=== PATIENT | male | born 1935 | race Caucasian/White ===

== ENCOUNTER 2018-09-03 07:45 | Emergency (ER) | payer MEDICARE, BC ==
--- NOTE | 2018-09-03 08:46 | EDM.PDOC ---
ED HPI GENERAL MEDICAL PROBLEM - General Stated Complaint: POSSIBLE STROKE? Time Seen by Provider: 09/03/18 08:10 Source of Information: Reports: Patient, Family (spouse) History Limitations: Reports: No Limitations - History of Present Illness INITIAL COMMENTS - FREE TEXT/NARRATIVE: According to patient he claims he felt numbness all over his body last Monday( 3 days ago) cannot describe how long it last but rsolved. On staruday he had short episodes of slurred speech and had wobbly gait and went to sleep and was fine when he woke up.He has been weak on and off since then.Feels dizzy. He woke up today morning and tired to get out of bed and felt dizzy. gave him some tea and brought him into emergency room. Pt walked into the emergency room. No nausea or vomiting, no headache, no loss of consciousness. No head injury. According to his , he has been very agitated for the past few days . Gets angry and upset with her some times. Pt has severe dementia and is on Namenda and Aricept. Onset Date: 08/31/18 Duration: Intermittent Severity: Mild Improves with: Reports: None Worsens with: Reports: None Associated Symptoms: Reports: Confusion, Weakness. Denies: Chest Pain, Cough, Diaphoresis, Fever/Chills, Headaches, Nausea/Vomiting, Rash, Seizure, Shortness of Breath, Syncope - Related Data Allergies Allergy/AdvReac Type Severity Reaction Status Date / Time No Known Allergies Allergy Verified 09/03/18 08:10 Home Meds: Home Meds Aspirin [Iam Chewable Aspirin] 81 mg PO DAILY 11/22/12 [History] Cholecalciferol (Vitamin D3) [Vitamin D] 400 unit PO DAILY 11/22/12 [History] Lansoprazole [Prevacid Solutab] 30 mg PO DAILY 11/22/12 [History] Multivitamin [Multi Vitamin Daily] 1 tab PO DAILY 11/22/12 [History] Simvastatin [Zocor] 10 mg PO BEDTIME 11/22/12 [History] Tamsulosin [Flomax] 0.4 mg PO DAILY 11/22/12 [History] Memantine HCl [Namenda] 10 mg PO DAILY 09/03/18 [History] Venlafaxine HCl [Venlafaxine ER] 75 mg PO DAILY 09/03/18 [History] ED ROS GENERAL - Review of Systems Review Of Systems: See Below Constitutional: Denies: Fever, Chills HEENT: Denies: Ear Pain, Rhinitis, Throat Pain Respiratory: Denies: Shortness of Breath, Cough, Sputum Cardiovascular: Denies: Chest Pain, Lightheadedness Endocrine: Denies: Fatigue GI/Abdominal: Denies: Abdominal Pain, Nausea, Vomiting : Denies: Dysuria, Frequency Musculoskeletal: Denies: Joint Pain, Joint Swelling Skin: Denies: Bruising, Pruritis, Rash Neurological: Reports: Confusion, Dizziness, Numbness (on monday( 3 days ago)), Weakness. Denies: Headache, Seizure, Syncope, Tingling, Change in Speech Psychiatric: Reports: Agitation, Confusion. Denies: Anxiety, Cravings, Depression, Hallucinations, Suicidal Ideation ED EXAM, GENERAL - Physical Exam Exam: See Below Exam Limited By: No Limitations General Appearance: Alert, WD/WN, No Apparent Distress Eye Exam: Bilateral Eye: EOMI, PERRL Ears: Normal External Exam, Normal Canal, Hearing Grossly Normal, Normal TMs Ear Exam: Bilateral Ear: Auricle Normal, Canal Normal, TM normal Nose: Normal Inspection, Normal Mucosa, No Blood Throat/Mouth: Normal Inspection, Normal Lips, Normal Teeth, Normal Gums, Normal Oropharynx, Normal Voice, No Airway Compromise Head: Atraumatic Neck: Normal Inspection, Supple, Non-Tender, Full Range of Motion Respiratory/Chest: No Respiratory Distress, Lungs Clear, Normal Breath Sounds, No Accessory Muscle Use, Chest Non-Tender Cardiovascular: Normal Peripheral Pulses, Regular Rate, Rhythm, No Edema, No Gallop, No JVD, No Murmur, No Rub Peripheral Pulses: 2+: Carotid (L), Carotid (R), Radial (L), Radial (R) GI/Abdominal: Normal Bowel Sounds, Soft, Non-Tender, No Organomegaly, No Distention, No Abnormal Bruit, No Mass Extremities: Normal Inspection, Normal Range of Motion, Non-Tender, Normal Capillary Refill, No Pedal Edema Neurological: Alert, Oriented, CN II-XII Intact, Normal Cognition, Normal Gait, Normal Reflexes, No Motor/Sensory Deficits Skin Exam: Warm, Intact Course - Vital Signs Text/Narrative:: Pt's clinical exam is normal. His vitals are stable. Has he has been c/o dizziness, did get orthostatic pressure, which are normal. Pt has episode of numbness on Monday and has been having weakness. Very nonspecific symptoms. His neuro exam today is normal. He has dementia on Namenda and Aricept. He is agitated and angry at times,which might be behavior issues asso with dementia. I do not see any acute clinical signs of stroke on today's exam. Did get Ct head to reassure patient and spouse. 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 Also his CBC and CMP are normal. I did get UA considering his change in behavior, and his UA is negative for infection. Pt and spouse reassured that patient does not have might have had a TIA or ischemic stroke, but it is late to be treated.. But will need to have MRI of the brain done, which is more for confirmation of the stroke. I did contact Dr. Kraus, the neurologist at [facility] and discuss with him. His recommendation was to get out patient MRI of the brain. I did contact patient's primary care provider, JAMILA Benson at [facility] and discuss patient with her. Ms. Duarte has placed an MRI Brain request. I have discussed this with patient's spouse. Advised her to call [facility] Radiology department to schedule time for MRI. Pt and spouse understand and agree with plan. Last Recorded V/S: Last Vital Signs Temp 98.8 F 09/03/18 10:03 Pulse 76 09/03/18 10:03 Resp 18 09/03/18 10:03 BP 131/66 09/03/18 10:03 Pulse Ox 98 09/03/18 10:03 - Orders/Labs/Meds Labs: Laboratory Tests 09/03/18 09/03/18 09/03/18 Range/Units 08:39 08:40 08:40 WBC 11.9 H D (4.0-11.0) K/uL RBC 4.38 L (4.50-6.50) M/uL Hgb 14.0 (13.0-18.0) g/dL Hct 42.5 (40.0-54.0) % MCV 97 H (76-96) fL MCH 32.0 (27.0-32.0) pg MCHC 32.9 (31.0-35.0) g/dL RDW 12.2 (11.0-16.0) % Plt Count 226 (150-400) K/uL MPV 9.0 (6.0-10.0) fL Neut % (Auto) 70.8 H (45.0-70.0) % Lymph % (Auto) 17.4 L (20.0-40.0) % [place] % (Auto) 11.7 H (3.0-10.0) % Eos % (Auto) 0.0 L (1.0-5.0) % Baso % (Auto) 0.1 (0.0-0.5) % Neut # (Auto) 8.45 H (2.00-7.50) K/uL Lymph # (Auto) 2.08 (1.50-4.00) K/uL [place] # (Auto) 1.40 H (0.20-0.80) K/uL Eos # (Auto) 0.00 L (0.04-0.40) K/uL Baso # (Auto) 0.01 L (0.02-0.10) K/uL PT (9.0-11.5) sec INR (1.0-3.5) APTT (24.4-33.2) SECONDS Sodium 137 (136-145) mmol/L Potassium 4.1 (3.5-5.1) mmol/L Chloride 100 (98-107) mmol/L Carbon Dioxide 29.5 (21.0-32.0) mmol/L Anion Gap 11.6 (5.0-15.0) mmol/L BUN 10 (8-26) mg/dL Creatinine 0.96 (0.70-1.30) mg/dL Est Cr Clr Drug Dosing TNP Estimated GFR (MDRD) > 60 (>60) MLS/MIN BUN/Creatinine Ratio 10.4 (6-25) Glucose 109 H D (74-100) mg/dL Calcium 8.4 L (8.5-10.1) mg/dL Total Bilirubin 0.8 D (0.0-1.0) mg/dL AST 19 (15-37) U/L ALT 17 (12-78) U/L Alkaline Phosphatase 80 (46-116) U/L Total Protein 7.1 (6.4-8.2) g/dL Albumin 3.0 L (3.4-5.0) g/dL Globulin 4.1 (2.2-4.2) g/dL Albumin/Globulin Ratio 0.7 L (0.8-2.0) Urine Color Yellow Urine Appearance Clear (CLEAR) Urine pH 6.0 (5.0-8.0) Ur Specific [place] 1.015 (1.003-1.030) Urine Protein Negative (NEGATIVE) mg/dL Urine Glucose (UA) Negative (NEGATIVE) mg/dL Urine Ketones 15 H (NEGATIVE) mg/dL Urine Occult Blood Trace-lysed H (NEGATIVE) Urine Nitrite Negative (NEGATIVE) Urine Bilirubin Negative (NEGATIVE) Urine Urobilinogen 0.2 (0.2-1.0) E.U./dL Ur Leukocyte Esterase Negative (NEGATIVE) Urine RBC 0-5 H /HPF Urine WBC 0-5 H /HPF Ur Squamous Epith Cells Few /HPF Urine Bacteria Not seen /HPF 09/03/18 Range/Units 08:40 WBC (4.0-11.0) K/uL RBC (4.50-6.50) M/uL Hgb (13.0-18.0) g/dL Hct (40.0-54.0) % MCV (76-96) fL MCH (27.0-32.0) pg MCHC (31.0-35.0) g/dL RDW (11.0-16.0) % Plt Count (150-400) K/uL MPV (6.0-10.0) fL Neut % (Auto) (45.0-70.0) % Lymph % (Auto) (20.0-40.0) % [place] % (Auto) (3.0-10.0) % Eos % (Auto) (1.0-5.0) % Baso % (Auto) (0.0-0.5) % Neut # (Auto) (2.00-7.50) K/uL Lymph # (Auto) (1.50-4.00) K/uL [place] # (Auto) (0.20-0.80) K/uL Eos # (Auto) (0.04-0.40) K/uL Baso # (Auto) (0.02-0.10) K/uL PT 10.4 (9.0-11.5) sec INR 1.1 (1.0-3.5) APTT 25.0 (24.4-33.2) SECONDS Sodium (136-145) mmol/L Potassium (3.5-5.1) mmol/L Chloride (98-107) mmol/L Carbon Dioxide (21.0-32.0) mmol/L Anion Gap (5.0-15.0) mmol/L BUN (8-26) mg/dL Creatinine (0.70-1.30) mg/dL Est Cr Clr Drug Dosing Estimated GFR (MDRD) (>60) MLS/MIN BUN/Creatinine Ratio (6-25) Glucose (74-100) mg/dL Calcium (8.5-10.1) mg/dL Total Bilirubin (0.0-1.0) mg/dL AST (15-37) U/L ALT (12-78) U/L Alkaline Phosphatase (46-116) U/L Total Protein (6.4-8.2) g/dL Albumin (3.4-5.0) g/dL Globulin (2.2-4.2) g/dL Albumin/Globulin Ratio (0.8-2.0) Urine Color Urine Appearance (CLEAR) Urine pH (5.0-8.0) Ur Specific [place] (1.003-1.030) Urine Protein (NEGATIVE) mg/dL Urine Glucose (UA) (NEGATIVE) mg/dL Urine Ketones (NEGATIVE) mg/dL Urine Occult Blood (NEGATIVE) Urine Nitrite (NEGATIVE) Urine Bilirubin (NEGATIVE) Urine Urobilinogen (0.2-1.0) E.U./dL Ur Leukocyte Esterase (NEGATIVE) Urine RBC /HPF Urine WBC /HPF Ur Squamous Epith Cells /HPF Urine Bacteria /HPF Departure - Departure Time of Disposition: 10:30 Disposition: Home, Self-Care 01 Condition: Fair Clinical Impression: TIA (transient ischemic attack) - Discharge Information *PRESCRIPTION DRUG MONITORING PROGRAM REVIEWED*: Not Applicable *COPY OF PRESCRIPTION DRUG MONITORING REPORT IN PATIENT KARMEN: Not Applicable Referrals: PCP,None [Primary Care Provider] - Additional Instructions: Pt's clinical exam is normal. His vitals are stable. Has he has been c/o dizziness, did get orthostatic pressure, which are normal. Pt has episode of numbness on Monday and has been having weakness. Very nonspecific symptoms. His neuro exam today is normal. He has dementia on Namenda and Aricept. He is agitated and angry at times,which might be behavior issues asso with dementia. I do not see any acute clinical signs of stroke on today's exam. Did get Ct head to reassure patient and spouse. 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 Also his CBC and CMP are normal. I did get UA considering his change in behavior, and his UA is negative for infection. Pt and spouse reassured that patient does not have might have had a TIA or ischemic stroke, but it is late to be treated.. But will need to have MRI of the brain done, which is more for confirmation of the stroke. I did contact Dr. Kraus, the neurologist at [facility] and discuss with him. His recommendation was to get out patient MRI of the brain. I did contact patient's primary care provider, JAMILA Benson at [facility] and discuss patient with her. Ms. Duarte has placed an MRI Brain request. I have discussed this with patient's spouse. Advised her to call [facility] Radiology department to schedule time for MRI. Pt and spouse understand and agree with plan. - Problem List & Annotations (1) TIA (transient ischemic attack) SNOMED Code(s): 484614510 Code(s): G45.9 - TRANSIENT CEREBRAL ISCHEMIC ATTACK, UNSPECIFIED Status: Acute Current Visit: Yes - Problem List Review Problem List Initiated/Reviewed/Updated: Yes - Assessment/Plan Assessment:: TIA Plan: Pt's clinical exam is normal. His vitals are stable. Has he has been c/o dizziness, did get orthostatic pressure, which are normal. Pt has episode of numbness on Monday and has been having weakness. Very nonspecific symptoms. His neuro exam today is normal. He has dementia on Namenda and Aricept. He is agitated and angry at times,which might be behavior issues asso with dementia. I do not see any acute clinical signs of stroke on today's exam. Did get Ct head to reassure patient and spouse. 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 Also his CBC and CMP are normal. I did get UA considering his change in behavior, and his UA is negative for infection. Pt and spouse reassured that patient does not have might have had a TIA or ischemic stroke, but it is late to be treated.. But will need to have MRI of the brain done, which is more for confirmation of the stroke. I did contact Dr. Kraus, the neurologist at [facility] and discuss with him. His recommendation was to get out patient MRI of the brain. I did contact patient's primary care provider, JAMILA Benson at [facility] and discuss patient with her. Ms. Duarte has placed an MRI Brain request. I have discussed this with patient's spouse. Advised her to call [facility] Radiology department to schedule time for MRI. Pt and spouse understand and agree with plan.
[2018-09-03 09:44] VITALS: BP 131/66
--- NOTE | 2018-09-03 10:03 | CT ---
DATE OF SERVICE: 09/03/2018 CLINICAL DATA: DIZZINESS Unenhanced brain CT: Multislice acquisition through the brain without IV contrast was performed. No priors. There is diffuse cerebral atrophy. There are periventricular lucencies bilaterally consistent with small vessel ischemic change. No evidence of intracranial hemorrhage. There is a rounded area of decreased attenuation located in the posterior parietal region on the left superior to the left lateral ventricle. This may just be focal small vessel ischemic change. I cannot, however exclude, a focal infarct or low density mass. No other abnormalities. No osseous abnormalities. Impression: Focal abnormality in the left posterior parietal region as discussed above. A follow up CT with contrast enhancement or an MRI scan without and with IV contrast enhancement should be considered. MTDD
[2018-09-03] MEDS ORDERED: Acetaminophen 325 MG Tab PO ONE (10:24)
[2018-09-03] MEDS ORDERED: Acetaminophen 325 MG Tab ONE (10:30)
== END 2018-09-03 10:27 | disposition home or self-care (01) ==
LOC: LB.ED 07:45
DX: G45.9 Transient cerebral ischemic attack, unspecified (principal)
CPT/HCPCS: 36415; 70450; 80053; 81001; 85025; 85610; 85730; A9270-GY

== ENCOUNTER 2018-09-03 21:24 | Emergency (ER) | payer MEDICARE, BC ==
--- NOTE | 2018-09-03 21:42 | EDM.PDOC ---
ED HPI GENERAL MEDICAL PROBLEM - General Chief Complaint: Neurological Problem Stated Complaint: confusion Time Seen by Provider: 09/03/18 21:25 Source of Information: Reports: Patient History Limitations: Reports: No Limitations - History of Present Illness INITIAL COMMENTS - FREE TEXT/NARRATIVE: Pt was seen here today morning. Kindly see my previous notes too.Spouse took him back to cabin after the mornign visit. As the MRI pof brain was scheduled for 09/12/18. She claims he was fine all day and around 6:15 PM when he was served his supper . He went weak and could not get up or move. Be had complete loss of strength in his lower extremities. And also could not get the food to his mouth and was spills his food. Appeared very confused. . Pt got him into the car and could not place his seat belt right. He has gradually got better now. Pt does have dementia and has been Aricept and Namenda. Spouse is concerned has he had similar episodes on Monday, Monday and today. Onset: Today Onset Date: 09/03/18 Onset Time: 18:15 Duration: Improving Associated Symptoms: Denies: Confusion, Chest Pain, Cough, Diaphoresis, Fever/ Chills, Malaise, Nausea/Vomiting, Rash, Seizure, Shortness of Breath, Syncope, Weakness - Related Data Allergies Allergy/AdvReac Type Severity Reaction Status Date / Time No Known Allergies Allergy Verified 09/03/18 08:10 Home Meds: Home Meds Aspirin [Iam Chewable Aspirin] 81 mg PO DAILY 11/22/12 [History] Cholecalciferol (Vitamin D3) [Vitamin D] 400 unit PO DAILY 11/22/12 [History] Lansoprazole [Prevacid Solutab] 30 mg PO DAILY 11/22/12 [History] Multivitamin [Multi Vitamin Daily] 1 tab PO DAILY 11/22/12 [History] Simvastatin [Zocor] 10 mg PO BEDTIME 11/22/12 [History] Tamsulosin [Flomax] 0.4 mg PO DAILY 11/22/12 [History] Memantine HCl [Namenda] 10 mg PO DAILY 09/03/18 [History] Venlafaxine HCl [Venlafaxine ER] 75 mg PO DAILY 09/03/18 [History] ED ROS GENERAL - Review of Systems Review Of Systems: See Below Constitutional: Denies: Fever, Chills HEENT: Denies: Rhinitis, Throat Pain, Throat Swelling Respiratory: Denies: Shortness of Breath, Wheezing, Cough, Sputum Cardiovascular: Denies: Chest Pain, Lightheadedness GI/Abdominal: Denies: Abdominal Pain, Constipation, Diarrhea, Nausea, Vomiting : Denies: Discharge, Dysuria, Flank Pain Musculoskeletal: Denies: Shoulder Pain, Joint Pain, Joint Swelling Skin: Denies: Bruising, Pruritis, Rash Neurological: Reports: Confusion, Difficulty Walking, Weakness, Gait Disturbance. Denies: Dizziness, Headache, Numbness, Tingling ED EXAM, GENERAL - Physical Exam Exam: See Below Exam Limited By: No Limitations General Appearance: Alert, WD/WN, No Apparent Distress Eye Exam: Bilateral Eye: EOMI, PERRL Ears: Normal External Exam Ear Exam: Bilateral Ear: Auricle Normal, Canal Normal, TM normal Nose: Normal Inspection, Normal Mucosa, No Blood Throat/Mouth: Normal Inspection, Normal Lips, Normal Teeth, Normal Gums, Normal Oropharynx, Normal Voice, No Airway Compromise Head: Atraumatic, Normocephalic Neck: Normal Inspection, Supple, Non-Tender, Full Range of Motion Respiratory/Chest: No Respiratory Distress, Lungs Clear, Normal Breath Sounds, No Accessory Muscle Use, Chest Non-Tender Cardiovascular: Normal Peripheral Pulses, Regular Rate, Rhythm, No Edema, No Gallop, No JVD, No Murmur, No Rub Extremities: Normal Inspection, Normal Range of Motion, Non-Tender, Normal Capillary Refill, No Pedal Edema Neurological: Alert, Oriented, Normal Gait, Normal Reflexes, No Motor/Sensory Deficits, Slow to Respond (this might be related to his dementia.), Other (HArd to do co-ordination check, as patient has difficulty under standing some of the commands. He can stand with his feet together and does not sway or fall.) Course - Vital Signs Text/Narrative:: 83 year old male with severe dementia, presents to emergency room here with 4 days episodes of different transient episodes of sensory and motor deficits. Monday he has transient numbness all over the body, Monday had slurred speech with wobbly gait, Monday morning had weakness with gait, Monday evening again has weakness and unable to walk for some time. I have not witness any of these episodes, as patient's neuro exam every time he is presenting to emergency room is normal. He is a little confused tonight, which might be due to sundowning asso with his dementia. As he had complete work,up in the morning with blood work, I did repeat his CT head tonight. His Ct head is negative for acute intracranial bleed. Apparently he has had [address] head in 24 hrs. His episodes do appear like recurrent TIA, or anxiety from the spouse.I have not witnessed any His MRI has been scheduled for 09/12/18, which is 10 days form today. Considering his reoccurring symptoms, I do feels that he needs further workup. Atleast rule out that he is not having any thromboembolic episodes causing these transient neurological episodes.In my opinion he should get a carotid Doppler, cardiac ECHO and MRI done to figure out the cause. These might need to be done LOBITO if not urgent.This is my opinion. After reassuring the patient and his spouse. I did contact [facility] and discuss patient with , the hospitalist control inspector.As I had contacted ( the neurologist ) today morning he wanted to run this by . So I did talk to about the patient and discussed his recurrent neurologic episodes with him. He feels there is no needs for patient to be transferred and he can be observed overnight at the local facility. I have discussed 's recommendation with patient and his spouse, who agree with the plan.Will admit patient for observation overnight and reassess in am. Also patient is running a low grade temp of 100.2F. His Lung are clear to auscultation. His CBC, CMP and UA done in the morning are within normal limits.Will get chest xray in am to make sure he does not have pneumonia, as he has some difficulty with feeding himself tonight before he presented to emergency room. Last Recorded V/S: Last Vital Signs Temp 100.0 F 09/03/18 21:35 Pulse 53 L 09/03/18 21:35 Resp 17 09/03/18 21:35 BP 129/68 09/03/18 21:35 Pulse Ox 98 09/03/18 21:35 - Orders/Labs/Meds Orders: Active Orders 24 hr Category Date Time Status Head wo Cont [CT] Stat Exams 09/03/18 21:30 Taken Meds: Medications Discontinued Medications Generic Name Dose Route Start Last Admin Trade Name Santa PRN Reason Stop Dose Admin Acetaminophen 650 mg 09/03/18 22:17 09/03/18 22:21 Tylenol PO 09/03/18 22:18 650 mg NOW ONE Administration Departure - Departure Time of Disposition: 23:15 Disposition: Refer to Observation Condition: Fair Clinical Impression: TIA (transient ischemic attack) - Discharge Information *PRESCRIPTION DRUG MONITORING PROGRAM REVIEWED*: Not Applicable *COPY OF PRESCRIPTION DRUG MONITORING REPORT IN PATIENT KARMEN: Not Applicable Forms: ED Department Discharge - Problem List & Annotations (1) TIA (transient ischemic attack) SNOMED Code(s): 193079160 Code(s): G45.9 - TRANSIENT CEREBRAL ISCHEMIC ATTACK, UNSPECIFIED Status: Acute Current Visit: Yes - Problem List Review Problem List Initiated/Reviewed/Updated: Yes - My Orders Last 24 Hours: My Active Orders 09/03/18 21:30 Head wo Cont [CT] Stat - Assessment/Plan Last 24 Hours: My Active Orders 09/03/18 21:30 Head wo Cont [CT] Stat Assessment:: TIA Plan: 83 year old male with severe dementia, presents to emergency room here with 4 days episodes of different transient episodes of sensory and motor deficits. Monday he has transient numbness all over the body, Monday had slurred speech with wobbly gait, Monday morning had weakness with gait, Monday evening again has weakness and unable to walk for some time. I have not witness any of these episodes, as patient's neuro exam every time he is presenting to emergency room is normal. He is a little confused tonight, which might be due to asso with his dementia. As he had complete work,up in the morning with blood work, I did repeat his CT head tonight. His Ct head is negative for acute intracranial bleed. Apparently he has had [address] head in 24 hrs. His episodes do appear like recurrent TIA, or anxiety from the spouse.I have not witnessed any His MRI has been scheduled for 09/12/18, which is 10 days form today. Considering his reoccurring symptoms, I do feels that he needs further workup. Atleast rule out that he is not having any thromboembolic episodes causing these transient neurological episodes.In my opinion he should get a carotid Doppler, cardiac ECHO and MRI done to figure out the cause. These might need to be done LOBITO if not urgent.This is my opinion. After reassuring the patient and his spouse. [facility] and discuss patient with , the hospitalist control inspector.As I had contacted ( the neurologist ) today morning he wanted to run this by . So I did talk to about the patient and discussed his recurrent neurologic episodes with him. He feels there is no needs for patient to be transferred and he can be observed overnight at the local facility. I have discussed 's recommendation with patient and his spouse, who agree with the plan.Will admit patient for observation overnight and reassess in am. Also patient is running a low grade temp of 100.2F. His Lung are clear to auscultation. His CBC, CMP and UA done in the morning are within normal limits.Will get chest xray in am to make sure he does not have pneumonia, as he has some difficulty with feeding himself tonight before he presented to emergency room.
[2018-09-03] MEDS ORDERED: Acetaminophen 325 MG Tab PO ONE (22:17)
[2018-09-03] MEDS ORDERED: Ibuprofen 600 MG Tab PO PRN (23:47)
[2018-09-03] MEDS ORDERED: Ibuprofen 600 MG Tab ONE (23:54)
[2018-09-04] MEDS ORDERED: Non-Formulary Medication 1 Each (Multivitamin [Multi-Vitamin Daily] 1 TAB) PO SCH (08:00)
[2018-09-04] MEDS ORDERED: Tamsulosin 0.4 MG Cap.ER PO SCH (08:00)
[2018-09-04] MEDS ORDERED: Aspirin 81 MG Tab.Chew PO SCH (08:00)
[2018-09-04] MEDS ORDERED: Memantine 10 MG Tab PO SCH ×2 (08:00→20:00)
[2018-09-04] MEDS ORDERED: LANSOPRAZOLE 30 MG PO SCH (08:00)
[2018-09-04] MEDS ORDERED: Venlafaxine 75 MG Cap.ER PO SCH (08:00)
[2018-09-04] MEDS ORDERED: CHOLECALCIFEROL 400 UNIT PO SCH (08:00)
[2018-09-04] MEDS ORDERED: CHOLECALCIFEROL 2000 UNIT PO SCH (08:31)
--- NOTE | 2018-09-04 09:54 | CT ---
DATE OF SERVICE: 09/03/18 CLINICAL DATA: Difficulty walking confused. UNENHANCED BRAIN CT: Comparison made to a prior exam from earlier in the day. No change. [id number] [facility]
--- NOTE | 2018-09-04 16:49 | MR ---
DATE OF SERVICE: 09/04/2018 CLINICAL DATA: TIA Unenhanced and enhanced brain MRI: Routine MR protocol without and with IV contrast was performed. There is diffuse cerebral atrophy. There are extensive foci of bright signal intensity along the periventricular white matter T2 and flair images consistent with small vessel ischemic change. No masses or mass effect. No evidence of intracranial hemorrhage. No evidence of acute or subacute infarct. No abnormal enhancement. Impression: Atrophy and findings consistent with small vessel ischemic change. MTDD
--- NOTE | 2018-09-04 17:35 | PCM.DCSUM1 ---
Discharge Summary - Hospital Course Free Text/Narrative:: Pt has had a uneventful night, has slept well. Neurocheck have been normal. Pt has been feeding well. She does have some staggering of his gait , but he can stand up and bear weight. No new neurological deficit noted . Around afternoon patient had a spike of 102.6F fever. He did receive motrin and sepsis workup. His CBC shows white count of 7.8 with stable differential. HIS chest x-ray is negative for pneumonia. His UA done yesterday is negative.His BMP is stable with GFR of 60. Electrolytes are normal. Pt did have a good Lunch today. His fever did break and presently afebrile. 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 I do feels that patient is having progression of his dementia. There have been some behavioral changes noted by family and also he does have sundowning. I have reassured pt and his family, that he does not have stroke. His workup is negative for any acute bacterial infection or life threatening infection. His fever might be or viral etiology. Plan is to discharge patient home. He should followup with his primary care provider in the next 1-2 days. Also he should have a neuropsychiatric evaluation to check his functional status. Also Home health might benefit patient and his caregiver from some of the burden of caring for elderly with dementia. I have clearly discussed theses issues with the family. Brief History: Kindly see the H&P for details. Admitted for observation to rule out TIA. Diagnosis: Stroke: No - Discharge Data Discharge Date: 09/04/18 Discharge Disposition: Home, Self-Care 01 Condition: Stable - Discharge Diagnosis/Problem(s) (1) TIA (transient ischemic attack) SNOMED Code(s): 963705313 ICD Code: G45.9 - TRANSIENT CEREBRAL ISCHEMIC ATTACK, UNSPECIFIED Status: Acute Current Visit: Yes - Patient Instructions Diet: Regular Diet as Tolerated Fluid Restriction: 1500 mL Activity: As Tolerated - Discharge Plan *PRESCRIPTION DRUG MONITORING PROGRAM REVIEWED*: Not Applicable *COPY OF PRESCRIPTION DRUG MONITORING REPORT IN PATIENT KARMEN: Not Applicable Home Medications: Home Meds Aspirin [Iam Chewable Aspirin] 81 mg PO DAILY 11/22/12 [History] Cholecalciferol (Vitamin D3) [Vitamin D] 400 unit PO DAILY 09/05/13 [History] Lansoprazole [Prevacid Solutab] 30 mg PO DAILY 11/22/12 [History] Multivitamin [Multi-Vitamin Daily] 1 tab PO DAILY 11/22/12 [History] Simvastatin [Zocor] 10 mg PO BEDTIME 11/22/12 [History] Tamsulosin [Flomax] 0.4 mg PO DAILY 11/22/12 [History] Memantine HCl [Namenda] 10 mg PO DAILY 09/03/18 [History] Venlafaxine HCl [Venlafaxine ER] 75 mg PO DAILY 09/03/18 [History] Mirabegron [Myrbetriq] 50 mg PO DAILY tab.er 09/04/18 [Rx] Forms: ED Department Discharge Referrals: PCP,None [Primary Care Provider] - - Discharge Summary/Plan Comment DC Time >30 min.: Yes - General Info Date of Service: 09/04/18 Functional Status: Reports: Pain Controlled, Tolerating Diet, Ambulating, Urinating - Review of Systems General: Reports: Fever. Denies: Weakness, Malaise HEENT: Denies: Headaches, Sinus Congestion Pulmonary: Denies: Shortness of Breath, Cough, Sputum, Hemoptysis Cardiovascular: Denies: Chest Pain, Lightheadedness Gastrointestinal: Denies: Abdominal Pain, Constipation, Diarrhea, Nausea, Vomiting Genitourinary: Denies: Dysuria, Frequency Musculoskeletal: Denies: Joint Pain, Joint Swelling Skin: Denies: Bruising, Pruritis, Rash Neurological: Reports: Difficulty Walking, Gait Disturbance. Denies: Confusion , Dizziness, Headache, Numbness, Tingling, Weakness Psychiatric: Reports: Confusion, Agitation - Patient Data Vitals - Most Recent: Last Vital Signs Temp 102.3 F H 09/04/18 14:06 Pulse 78 09/04/18 12:00 Resp 18 09/04/18 12:00 BP 143/70 H 09/04/18 12:00 Pulse Ox 96 09/04/18 12:00 Weight - Most Recent: 152.3 kg Lab Results - Last 24 hrs: Laboratory Results - last 24 hr 09/04/18 09/04/18 09/04/18 Range/Units 14:25 14:25 15:00 WBC 7.8 D (4.0-11.0) K/uL RBC 4.24 L (4.50-6.50) M/uL Hgb 13.6 (13.0-18.0) g/dL Hct 40.9 (40.0-54.0) % MCV 97 H (76-96) fL MCH 32.1 H (27.0-32.0) pg MCHC 33.3 (31.0-35.0) g/dL RDW 12.1 (11.0-16.0) % Plt Count 232 (150-400) K/uL MPV 9.2 (6.0-10.0) fL Neut % (Auto) 73.1 H (45.0-70.0) % Lymph % (Auto) 14.1 L (20.0-40.0) % Coal % (Auto) 12.2 H (3.0-10.0) % Eos % (Auto) 0.5 L (1.0-5.0) % Baso % (Auto) 0.1 (0.0-0.5) % Neut # (Auto) 5.71 (2.00-7.50) K/uL Lymph # (Auto) 1.10 L (1.50-4.00) K/uL Coal # (Auto) 0.95 H (0.20-0.80) K/uL Eos # (Auto) 0.04 (0.04-0.40) K/uL Baso # (Auto) 0.01 L (0.02-0.10) K/uL Sodium 138 (136-145) mmol/L Potassium 3.8 (3.5-5.1) mmol/L Chloride 101 (98-107) mmol/L Carbon Dioxide 29.4 (21.0-32.0) mmol/L Anion Gap 11.4 (5.0-15.0) mmol/L BUN 11 (8-26) mg/dL Creatinine 1.00 (0.70-1.30) mg/dL Est Cr Clr Drug Dosing 50.49 mL/min Estimated GFR (MDRD) > 60 (>60) MLS/MIN BUN/Creatinine Ratio 11.0 (6-25) Glucose 116 H (74-100) mg/dL Lactic Acid 1.89 H (0.90-1.70) mmol/L Calcium 8.6 (8.5-10.1) mg/dL Med Orders - Current: Current Medications Aspirin (Aspirin) 81 mg PO DAILY [facility] Last Admin: 09/04/18 09:58 Dose: 81 mg Finasteride (Proscar) 5 mg PO BEDTIME [facility] Ibuprofen (Motrin) 600 mg PO Q8H PRN PRN Reason: Headache/Pain Last Admin: 09/04/18 13:06 Dose: 600 mg Memantine (Namenda) 10 mg PO BID [facility] Mirabegron (Myrbetriq) 50 mg PO DAILY [facility] Last Admin: 09/04/18 09:54 Dose: Not Given Non-Formulary Medication (Lansoprazole [Prevacid Solutab]) 30 mg PO DAILY [facility] Last Admin: 09/04/18 09:48 Dose: 30 mg Non-Formulary Medication (Multivitamin [Multi-Vitamin Daily]) 1 tab PO DAILY [facility] Last Admin: 09/04/18 09:47 Dose: 1 tab Non-Formulary Medication 1 Each ( Cholecalciferol ( Vitamin D3) [Vitamin D] 2000 Unit) 2,000 unit PO DAILY [facility] Simvastatin (Zocor) 10 mg PO BEDTIME [facility] Tamsulosin HCl (Flomax) 0.4 mg PO DAILY [facility] Last Admin: 09/04/18 09:52 Dose: Not Given Venlafaxine HCl (Effexor Xr) 75 mg PO DAILY [facility] Last Admin: 09/04/18 09:47 Dose: 75 mg Discontinued Medications Acetaminophen (Tylenol) 650 mg PO NOW ONE Stop: 09/03/18 22:18 Last Admin: 09/03/18 22:21 Dose: 650 mg Ibuprofen (Motrin) Confirm Administered Dose 600 mg .ROUTE .STK-MED ONE Stop: 09/03/18 23:55 Last Admin: 09/04/18 00:01 Dose: 600 mg Memantine (Namenda) 10 mg PO DAILY [facility] Non-Formulary Medication (Cholecalciferol (Vitamin D3) [Vitamin D]) 400 unit PO DAILY [facility] - Exam General: Reports: Alert, Oriented, Cooperative HEENT: Reports: Pupils Equal, Pupils Reactive, EOMI, Mucous Membr. Moist/[place] Neck: Reports: Supple Lungs: Reports: Clear to Auscultation, Normal Respiratory Effort Cardiovascular: Reports: Regular Rate, Regular Rhythm GI/Abdominal Exam: Normal Bowel Sounds, Soft, Non-Tender, No Organomegaly, No Distention, No Abnormal Bruit, No Mass, Pelvis Stable Extremities: Normal Inspection, Normal Range of Motion, Non-Tender, No Pedal Edema, Normal Capillary Refill Neurological: Reports: No New Focal Deficit, Other (pt does have staggering gait but he can weight bear on the feet well.) Psy/Mental Status: Reports: Alert, Normal Mood
[2018-09-04] MEDS ORDERED: Acetaminophen 325 MG Tab PO ONE (17:47)
--- NOTE | 2018-09-04 18:49 | CR ---
CLINICAL DATA: Fever 101F. AP PORTABLE CHEST, 04 SEPTEMBER 2018: No other priors. The heart size is within normal limits. The patient has taken a poor inspiration. The lungs appear clear. No pneumothorax. No pleural effusions. No evidence of acute intrathoracic disease. Job: [id number] MTDD
[2018-09-04 19:34] VITALS: BP 119/75
[2018-09-04] MEDS ORDERED: Finasteride 5 MG Tab PO SCH (20:00)
[2018-09-04] MEDS ORDERED: Simvastatin 10 MG Tab PO SCH (20:00)
== END 2018-09-04 19:55 | disposition home or self-care (01) ==
LOC: LB.ED 21:24 → UNDOADMOB 21:30 → LB.MS 21:30
PROVIDERS: ADMIT Family Medicine; ATTEND Family Medicine
DX: G45.9 Transient cerebral ischemic attack, unspecified (principal); Z79.82 Long term (current) use of aspirin; Z79.899 Other long term (current) drug therapy
CPT/HCPCS: 36415; 70450; 70553; 71045; 80048; 80053; 81001; 83605; 85025; 85610; 85730; 87040; 99285-25; A9270-GY